=== PATIENT | female | born 1975 | race Two or more races ===

== ENCOUNTER → 2019-06-04 10:56 | Outpatient (CLI) | payer SELFPAY ==
[2019-06-10 14:34] LABS: HPV Reflexed? NOT INDICATED
== END ==
PROVIDERS: Referring Provider Obstetrics & Gynecology; Visit Provider Obstetrics & Gynecology
DX: Z12.4 Encounter for screening for malignant neoplasm of cervix (principal)
CPT/HCPCS: 87624; 88175; G0145